=== PATIENT | female | born 1955 | race Caucasian/White ===

== ENCOUNTER → 2019-10-12 | Outpatient (CLI) | payer BC | LOC: SJCVCIMAG 11:44 | DX: I08.1 Rheumatic disorders of both mitral and tricuspid valves (principal); I10 Essential (primary) hypertension; E78.5 Hyperlipidemia, unspecified; E11.9 Type 2 diabetes mellitus without complications; Z79.899 Other long term (current) drug therapy ==

== ENCOUNTER → 2019-10-19 | Outpatient (CLI) | payer BC ==
[~2019-10-19] VITALS: Ht 167.6 cm; Wt 70.8 kg
[~2019-10-19] MED LIST: CHILDREN'S ASPI81 M1 PO; FOSAMAX 70 MG T70 MG PO; LEVOXYL112 MCG PO; METFORMIN HCL500 M3 PO; PRAVASTATIN SOD10 MG PO; PRINIVIL20 M1 PO; VESICARE10 M1 PO
[2019-10-19 09:11] VITALS: BP 141/78
[2019-10-19 09:22] LABS: HEMATOCRIT 41.6 % (37.0-47.0); HEMOGLOBIN 14.1 gm/dL (12.0-15.0); MCH 29.8 pg (26.0-34.0); MCHC 33.7 g/dL (28.0-37.0); MCV 88.4 fL (80.0-100.0); RBC 4.71 mil/uL (4.20-5.00); RDW 13.3 % (10.5-14.5); WBC 5.9 thou/uL (4.0-11.0)
[2019-10-19 09:30] LABS: CALCIUM 8.9 mg/dL (8.5-10.1); POTASSIUM 4.1 mmol/L (3.5-5.1)
--- NOTE | 2019-10-26 14:41 | CATHLAB ---
[facility] [place] [address] INVASIVE PROCEDURE REPORT Name: PRIYAMONIE Room #: REG DONALDO Selvin#: [id number] Admission: 10/19/19 Attend Phys: Jose Ramon Montiel Discharge: Date of : 51 Report #: [id number] THIS REPORT FOR: cc: Anne Leyva MD,Jose Ramon Perkins MD, MD ~ APPROVED REPORT Study performed: 10/19/2019 09:13:42 Patient Details Patient Status: Out-Patient Room #: The patient is a 64 year-old female Event Personnel Jose Ramon Montiel Chief Meteorologist, Belkys Tipton RN, Lakeisha John Paschal, Ja'net RTR Monitor Procedures Performed Left Heart Cath w/or w/o Coronaries [id number] [facility] [id number] Initial Mod Sed Same Phys/QHP Gr5y 337804 Art Access - R femoral artery* Hemostasis with Manual pressure, supervision of conscious sedation Indication Positive stress test, Chest pain Procedure Narrative The patient was brought electively to the Cardiac Catheterization Laboratory and was prepped and draped in a sterile manner. The Right Groin^ was infiltrated with 1% Lidocaine subcutaneous anesthesia. A PINNACLE 4FR Sheath #[id number] sheath was inserted into the RFA^. Coronary angiography was performed using coronary diagnostic catheters. The right coronary system was accessed and visualized with a JR4 catheter. The left coronary system was accessed and visualized with a JL4 catheter. The left ventricle was accessed and visualized with a JL4 catheter. Hemostasis was obtained with manual pressure following sheath removal without any complications. The patient tolerated the procedure well and there were no complications associated with the procedure. Intraoperative Conscious Sedation Sedation start time: 9:49 Case end Time: 10:19 [facility] [address] [place] [address] INVASIVE PROCEDURE REPORT Name: MONIE POWERS Room #: REG [facility].#: [id number] Admission: 10/19/19 Attend Phys: Jose Ramon Meade Discharge: Date of : 51 Report #: [id number] Versed 2 mg Fluoro Time: 3.80 minutes Dose: DAP 4399.00 cGycm2 1260 mGy Contrast Type and Amount: Omnipaque 50 ml Coronary Angiography The patient's coronary anatomy is right dominant. Diagnostic Cath Left Main Large-caliber vessel normal origin bifurcates that into the descending left circumflex is free of high-grade disease LAD Moderate Caliber type III vessel which courses in the anterior interventricular sulcus. It is proximal portion there is an vcnefrafv38- 50% lesion which is not flow-limiting. The vessel continues on in the anterior interventricular sulcus skin rashes of the diagonal branches free of high-grade disease. In the junction between the mid and distal LAD there is a hairpin bend of the vessel but no lesions noted Diagonal 1 Small-caliber vessel coursing around the lateral aspect of the left ventricle without high-grade lesions Circumflex Small caliber nondominant vessel coursing AV groove to the lateral aspect of the left ventricle) 2 marginal branches. The first marginal is small and the second marginal is small to moderate in size. Multiple plaquing is identified. The circumflex and continues and terminates a posterior wall marginal branch with only luminal irregularities noted OM1 Small-caliber vessel without significant obstructive lesion OM2 Small-caliber vessel without significant lesion but long in length tortuous in its course Right Coronary Significantly large caliber vessel of normal origin and gives rise to an early RV marginal branch free of high-grade disease. The continues on to the crux which she tries to a small posterior descending artery and a small distal circulation consisting of several posterior wall branches with tortuous course but no high-grade lesions R PDA Small-caliber vessel and I high-grade lesions noted Left Ventriculography Left Ventriculography was not performed. Hemodynamics The aortic pressure is 147/106 mmHg with a mean of 126 mmHg. The left ventricular pressure is 156/2 mmHg with a mean of mmHg. The left [facility] [address] [place] [address] INVASIVE PROCEDURE REPORT Name: MONIE POWERS Room #: BRISEIAD Montalvo#: [id number] Admission: 10/19/19 Attend Phys: Jose Ramon Meade Discharge: Date of : 51 Report #: [id number] ventricular end diastolic pressure is 22 mmHg. Conclusion 1. Coronary disease mild to moderate single-vessel nonobstructive 2. Large super dominant right coronary artery without high-grade obstructive lesions 3. Normal hemodynamics Recommendations Cardiac Risk Reduction Program Medical Therapy <ELECTRONICALLY SIGNED> By: Jose Ramon Montiel MD 10/26/19 [id number] Jose Ramon Montiel MD /INF
== END | disposition home or self-care (01) ==
LOC: CATH 08:33
PROVIDERS: Internal Medicine
DX: R94.39 Abnormal result of other cardiovascular function study (principal); R07.9 Chest pain, unspecified; I25.10 Atherosclerotic heart disease of native coronary artery without angina pectoris; I10 Essential (primary) hypertension; E78.5 Hyperlipidemia, unspecified; E11.9 Type 2 diabetes mellitus without complications; E03.9 Hypothyroidism, unspecified; Z98.890 Other specified postprocedural states; Z79.899 Other long term (current) drug therapy; Z87.891 Personal history of nicotine dependence; Z79.82 Long term (current) use of aspirin